=== PATIENT | female | born 2005 | race African-American/Black ===

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

== ENCOUNTER 2025-07-09 09:41 | Emergency (ER) | payer OTHER ==
[2025-07-09] MEDS ORDERED: Dexamethasone 4 MG TAB ONE (10:09)
[2025-07-09] MEDS ORDERED: Ibuprofen 200 MG TAB ONE (10:10)
== END 2025-07-09 11:17 | disposition home or self-care (01) ==
LOC: CSHERS 09:41
DX: J02.9 Acute pharyngitis, unspecified (principal); B97.89 Other viral agents as the cause of diseases classified elsewhere; F17.290 Nicotine dependence, other tobacco product, uncomplicated; Z55.6 Problems related to health literacy
CPT/HCPCS: 71045; 87081; 87428; 87430; J8540